=== PATIENT | female | born 1995 | race Caucasian/White ===

== ENCOUNTER 2017-01-03 19:08 | Observation (INO) ==
[2017-01-03] MEDS ORDERED: Terbutaline 1 MG/ML VIAL SQ ONE (19:53)
--- NOTE | 2017-01-03 19:56 | OB/GYN Progress Note ---
Date of Encounter: 01/03/17 Time of Encounter: 19:54 - Assessment and Plan (1) 34 weeks gestation of Current Visit: Yes Status: Acute Pt with uterine irritability. Will give SSQ [place]. Subjective - Subjective Principal diagnosis: C/o cramps and back pain Interval history: 21 yo female presents with c/o 2 day h/o back pain, now with abd tightening q 5 min and ?LOF. + GFM Objective - Vital Signs Vital Signs: Intake and Output 01/03/17 01/03/17 01/03/17 07:59 15:59 23:59 Other: Weight 81.3 kg Patient Weight 01/03/17 23:59 Weight 81.3 kg - Exam FHR: category 1 Auscultation: bilateral: normal Abdomen: Present: gravid Uterus: Present: firm Cervical dilation: cl Cervix effacement: th station: -2 Comments: SSE is neg for pool and nitrazine is neg.
[2017-01-03 19:58] LABS: Bilirubin,Urine Negative (Negative); Blood,Urine Negative (Negative); Clarity,Urine Cloudy (Clear); Color,Urine Yellow (Yellow); Glucose,Urine (UA) Normal (Normal); Ketones,Urine Negative (Negative); Leukocyte Esterase,Urine Negative (Negative); Nitrite,Urine Negative (Negative); Protein,Urine Negative (Neg-Trace); Specific Gravity,Urine 1.008 (1.010-1.025); Urobilinogen,Urine Normal (Normal)
[2017-01-03 20:00] LABS: Bacteria,Urine Few per hpf (None-Few); Hyaline Casts,Urine None Seen per lpf (None-Few); RBC,Urine 0-3 per hpf (0-3); Squamous Epithelial Cell,Urine Many per lpf (None-Few)
[2017-01-03] MEDS ORDERED: Acetaminophen 325 MG TABLET PO ONE (21:23)
== END 2017-01-03 21:45 | disposition home or self-care (01) ==
LOC: 1NENULAB
PROVIDERS: ADMIT Obstetrics & Gynecology; ATTEND Obstetrics & Gynecology

== ENCOUNTER 2017-01-05 10:52 | Observation (INO) ==
[2017-01-05] MEDS ORDERED: Acetaminophen 325 MG TABLET PO ONE (11:34)
[2017-01-05] MEDS ORDERED: Ondansetron ODT 4 MG TAB.RAPDIS SL ONE (11:34)
--- NOTE | 2017-01-05 11:37 | Discharge Summary ---
Date of Encounter: 01/05/17 Time of Encounter: 11:39 - Discharge Diagnosis (1) False labor Priority: Primary Status: Acute Comments: Ms. Simons, a 21yo female, presents from home with concerns for labor contractions. She notes they are began last night at 10pm with frequency of every [address] Capellan (environmental science instructor) who encouraged her to come in. She has nausea. Vaginal bleeding or gush of fluids. No recent intercourse. Mild pelvic and back pains. OB: Dr. 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 External TOCO shows uterine irritability. External FHR monitor shows reactivity. Will provide Zofran ODT and acetaminophen. Patient refuses ambien (given 2 days ago on her last evaluation in L&D). We discussed benadryl which she also refused. Will discharge home. (2) 34 weeks gestation of Priority: Primary Status: Acute Comments: as above - Discharge Medications Home Medications: [id number]/Iron Fumarate/FA/Dss [ 19 Tablet] 1 each PO DAILY 01/03/17 [ History] Allergies/Adverse Reactions: Allergies No Known Allergies Allergy (Verified 01/05/17 11:22) Data Procedures and tests throughout hospitalization: External TOCO External FHR monitor Date of admission: 01/05/17 10:52 Primary care physician: PCP NO Consults: none Discharging clinician: Jabari Case Anticipated date of discharge: 01/05/17 - Patient Status Disposition: Home, Self-Care Condition: Good Functional capacity at discharge: independent ambulation Overall status at discharge: patient is back to baseline - Discharge Instructions Instructions: Early Labor Signs (DC) Follow Up With: Miles Elder MD [Partnered Physician] - Additional Instructions: Follow-up with your primary OB physician as scheduled. 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
--- NOTE | 2017-01-05 13:20 | OB/GYN Progress Note ---
Date of Encounter: 01/05/17 Time of Encounter: 11:30 - Assessment and Plan (1) NST (non-stress test) reactive Current Visit: Yes Status: Acute (2) False labor Current Visit: Yes Status: Acute SVE remains closed. Discharge home with precautions. (3) 34 weeks gestation of Current Visit: No Status: Acute Subjective - Subjective Interval history: 21 year-old presenting at 34 weeks with c/o contractions every 4 minutes that are painful. She was seen on Thursday and was evens but no cervical change was noted. She was discharged home with ambien. No LOF, VB, or other complaints today. Antepartum ROS: movement normal, contractions, no loss of fluid, no vaginal bleeding Objective - Vital Signs Vital Signs: Intake and Output 01/04/17 01/05/17 01/05/17 23:59 07:59 15:59 Other: Weight 80.2 kg Patient Weight 01/05/17 23:59 Weight 80.2 kg - Exam FHR: category 1 FHR comments: reactive NST Auscultation: bilateral: normal Abdomen: Present: soft. Absent: tenderness Uterus: Present: normal. Absent: tenderness Cervical dilation: closed
== END 2017-01-05 11:51 | disposition home or self-care (01) ==
LOC: 1NENULAB
PROVIDERS: ADMIT Obstetrics & Gynecology; ATTEND Obstetrics & Gynecology

== ENCOUNTER 2017-01-13 20:23 | Observation (INO) ==
[2017-01-13 21:45] LABS: Bilirubin,Urine Negative (Negative); Blood,Urine Negative (Negative); Clarity,Urine Clear (Clear); Color,Urine Yellow (Yellow); Glucose,Urine (UA) Normal (Normal); Ketones,Urine Negative (Negative); Leukocyte Esterase,Urine Trace (Negative); Nitrite,Urine Negative (Negative); PH,Urine 6.5 pH Units (5.0-8.0); Protein,Urine Negative (Neg-Trace); Specific Gravity,Urine 1.017 (1.010-1.025); Urobilinogen,Urine Normal (Normal)
[2017-01-13 21:46] LABS: RBC,Urine 0-3 per hpf (0-3)
[2017-01-13 21:49] LABS: Calcium Oxalate Crystals,Urine Present; Hyaline Casts,Urine Few per lpf (None-Few); Squamous Epithelial Cell,Urine Moderate per lpf (None-Few)
[2017-01-13 21:50] LABS: Mucus,Urine Few (Few); Yeast,Urine Few per hpf (None Seen)
[2017-01-13 21:51] LABS: Bacteria,Urine Moderate per hpf (None-Few)
--- NOTE | 2017-01-13 22:00 | Discharge Summary ---
Date of Encounter: 01/13/17 Time of Encounter: 22:00 - Discharge Diagnosis (1) 36 weeks gestation of Priority: Secondary Status: Acute (2) False labor Priority: Primary Status: Acute Comments: Reactive NST Oral Hydration Urinalysis and Reflex C/S Sterile Vaginal Exam GBS collected Discharge home with labor precautions and movement counts (3) NST (non-stress test) reactive Priority: Secondary Status: Acute Comments: Reactive NST 15x15 accels baseline of 120 (4) Vaginal candidiasis Priority: Primary Status: Acute Comments: Terazol 7 Rx submitted electronically to patient's preferred pharmacy. - Discharge Medications Prescriptions: Terconazole [Terazol 7] 45 gm VG HS #1 cream.appl Home Medications: [id number]/Iron Fumarate/FA/Dss [ 19 Tablet] 1 each PO DAILY 01/03/17 [ History] Terconazole [Terazol 7] 45 gm VG HS #1 cream.appl 01/13/17 [Rx] Allergies/Adverse Reactions: Allergies No Known Allergies Allergy (Verified 01/05/17 11:22) Data Procedures and tests throughout hospitalization: Laboratory Tests 01/13/17 20:48 Urine Color Yellow Urine Clarity Clear Urine pH 6.5 Ur Specific [place] 1.017 Urine Protein Negative Urine Glucose (UA) Normal Urine Ketones Negative Urine Blood Negative Urine Nitrite Negative Urine Bilirubin Negative Urine Urobilinogen Normal Ur Leukocyte Esterase Trace H Urine Microscopic RBC 0-3 Urine Microscopic WBC 5-15 H Ur Squamous Epith Cells Moderate H Calcium Oxalate Crystal Present Urine Bacteria Moderate H Hyaline Casts Few Urine Mucus Few Urine Yeast Few H Ur Culture Indicated? YES A Labs on day of discharge: Labs from last 24 hours 01/13/17 20:48 Urine Color Yellow Urine Clarity Clear Urine pH 6.5 Ur Specific [place] 1.017 Urine Protein Negative Urine Glucose (UA) Normal Urine Ketones Negative Urine Blood Negative Urine Nitrite Negative Urine Bilirubin Negative Urine Urobilinogen Normal Ur Leukocyte Esterase Trace H Urine Microscopic RBC 0-3 Urine Microscopic WBC 5-15 H Ur Squamous Epith Cells Moderate H Calcium Oxalate Crystal Present Urine Bacteria Moderate H Hyaline Casts Few Urine Mucus Few Urine Yeast Few H Ur Culture Indicated? 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: Total time spent providing and/or coordinating discharge services: Exam - Constitutional General appearance IM: cooperative, A&O X 3, pleasant, no acute distress - Respiratory Respiratory exam: Present: CTAB - Cardiovascular Cardiovascular exam IM: Present: RRR, +S1, +S2 - GI/Abdominal GI/Abdominal exam IM: normal bowel sounds - Rectal Rectal exam: normal inspection - Additional comments: Gravid uterus - nontender, soft, no contractions palpated - Extremities Exam Extremities exam IM: Present: normal capillary refill, normal inspection, radial pulses palpable and symetrical - Neurological Exam Neurological exam: alert, oriented X3, reflexes normal, no focal deficits - Other Additional findings: Cervical exam: finger tip and -3 station - VTE Reasons for not Prescribing Prophylaxis: Treatment not Indicated - Low risk for VTE
== END 2017-01-13 22:19 | disposition home or self-care (01) ==
LOC: 1NENULAB
PROVIDERS: ADMIT Advanced Practice Midwife; ATTEND Obstetrics & Gynecology

== ENCOUNTER 2017-01-15 20:41 | Observation (INO) ==
[2017-01-15 20:56] VITALS: BP 116/72
[2017-01-15 21:11] LABS: Bilirubin,Urine Negative (Negative); Blood,Urine Negative (Negative); Clarity,Urine Cloudy (Clear); Color,Urine Yellow (Yellow); Glucose,Urine (UA) Normal (Normal); Ketones,Urine Negative (Negative); Leukocyte Esterase,Urine Trace (Negative); Nitrite,Urine Negative (Negative); PH,Urine 6.5 pH Units (5.0-8.0); Protein,Urine Negative (Neg-Trace); Specific Gravity,Urine 1.013 (1.010-1.025); Urobilinogen,Urine Normal (Normal)
[2017-01-15 21:19] LABS: Bacteria,Urine Moderate per hpf (None-Few); Hyaline Casts,Urine None Seen per lpf (None-Few); RBC,Urine 0-3 per hpf (0-3); Squamous Epithelial Cell,Urine Many per lpf (None-Few)
[2017-01-15] MEDS ORDERED: Ringers Solution, Lactated 1,000 ML IVC ONE (21:22)
[2017-01-15] MEDS ORDERED: Ringers Solution, Lactated 1,000 ML ONE ×2 (21:22→22:28)
[2017-01-15 21:28] LABS: Basophils % 0.2 %; Eosinophils % 0.2 %; Hematocrit 34.3 % (35.3-44.9); Hemoglobin 11.6 g/dL (11.5-15.4); Immature Granulocytes % 0.6 % (0-4); Lymphocytes # 2.4 K/mcL (0.6-4.6); Lymphocytes % 19.4 %; Mean Corpuscular HGB Conc 33.8 g/dL (31.6-35.5); Mean Corpuscular Hemoglobin 31.2 pg (28.0-33.3); Mean Corpuscular Volume 92.2 fL (83.0-100.0); Monocytes # 0.8 K/mcL (0.0-1.3); Monocytes % 6.1 %; Platelet Count 129 K/mcL (140-400); Red Blood Count 3.72 M/mcL (3.82-4.97); Red Cell Distribution Width 13.9 % (11.5-14.5); Segmented Neutrophils % 73.5 %
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
[2017-01-15 21:47] LABS: Prothrombin Time 11.2 Seconds (9.4-12.1)
[2017-01-15 21:49] LABS: Activated Partial Thrombo Time 26.1 Seconds (26.0-36.0)
[2017-01-15 22:57] LABS: Kleihauer-Betke-Fet Hgb Qnt 0 mL FMH (0-0)
[2017-01-15] MEDS ORDERED: Acetaminophen 325 MG TABLET PO PRN (22:57)
[2017-01-15] MEDS ORDERED: Ringers Solution, Lactated 1,000 ML IVC SCH (23:00)
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
== END 2017-01-16 09:50 | disposition home or self-care (01) ==
LOC: 1NENULAB
PROVIDERS: ADMIT Obstetrics & Gynecology; ATTEND Obstetrics & Gynecology

== ENCOUNTER 2017-02-10 05:57 | Inpatient (IN) ==
[2017-02-10] MEDS ORDERED: miSOPROStol 25 MCG TABLET PO PRN (06:45)
[2017-02-10] MEDS ORDERED: Metoclopramide 10 MG/2 ML VIAL IVP PRN (06:45)
[2017-02-10] MEDS ORDERED: Naloxone 0.4 MG/ML INJ IVP PRN (06:45)
[2017-02-10] MEDS ORDERED: Famotidine 20 MG/2 ML VIAL IVP PRN (06:45)
--- NOTE | 2017-02-10 07:00 | OB/GYN History & Physical ---
Date of Encounter: 02/10/17 Time of Encounter: 06:57 Assessment and Plan (1) 39 weeks gestation of Current visit: Yes Status: Acute GBS - induction of labor oral cytotec patient may have IV pain medication upon request consult anesthesia for epidural vaginal delivery anticipated plan of care per consult with Dr. Elder (2) LGA (large for gestational age) fetus Current visit: Yes Status: Acute History of Present Illness Chief complaint: scheduled induction of labor HPI: Ms. Simons is a 21 year old female at 39.1 here today for a scheduled induction of labor due to size greater than date/LGA. She has been experiencing intermittent contractions for the past few weeks and has vaginal discharge without bleeding. States positive movement. Blood type A-. Labs: GBS -, HIV -, Hep B -, rubella immune, varicella immune. Not a cystic fibrosis carrier. Past Med Surg Social Fam HX - Past Medical History Medical history: no medical history Psychiatric history: no psych history - Past Surgical History Surgical History: other - Social History Smoking Status: Never smoker Smokeless Tobacco Status: No Alcohol use: none Drug use: none - Family History Mother Age: 47 Family Member Ethnicity: Non- Living Status: Still Living Hx Family Cardiac Disorders: No Hx Family Respiratory Disorders: No Hx Family Cancer: No Hx Family GI Disorders: No Hx Family Genitourinary Disorders: No Hx Family Endocrine Disorder: No Hx Family Musculoskeletal Disorders: No Hx Family Neuromuscular Disorders: No Hx Family Neurologic Disorders: No Hx Family HEENT Disorders: No Hx Family Autoimmune Disorders: No Hx Family Reproductive Disorders: No Hx Family Psychosocial Disorders: No Hx Family Medical Disorders: No Obstetrical History - Pregnancies : 1 Medications and Allergies [id number]/Iron Fumarate/FA/Dss [ 19 Tablet] 1 each PO DAILY 01/03/17 [ History] Allergies No Known Allergies Allergy (Verified 01/15/17 20:43) Review of System OB - Constitutional Constitutional ROS IM: no fever(s) - Gastrointestinal Gastrointestinal: no abdominal pain - Genitourinary Genitourinary: no abnormal vaginal bleeding Exam - Vital Signs Vital signs: Initial Vital Signs Temp Pulse Resp BP 97.2 F L 83 16 108/58 02/10/17 06:32 02/10/17 06:32 02/10/17 06:32 02/10/17 06:32 - Constitutional Constitutional: well developed, well nourished, no acute distress - HEENT HEENT: Normocephaly, Mucus Membranes Moist - Neck Neck exam: supple - Lungs Respiratory exam: CTAB - Cardiovascular Cardiovascular exam: RRR, +S1, +S2 - Extremities Deep Tendon Reflex Grade: 1+ Diminished - Cervix Dilation: 1 Effacement: 25 (thick) Station: -2 - Comments Comments: contractions every 2-4 minutes, 45-120 seconds FHT 130s with moderate variability 15x15 accels and no decels Results All other labs normal. - VTE Reasons for not Prescribing Prophylaxis: Treatment not Indicated - Low risk for VTE
[2017-02-10 09:01] LABS: Basophils % 0.3 %; Eosinophils % 0.3 %; Hemoglobin 11.9 g/dL (11.5-15.4); Immature Granulocytes % 0.7 % (0-4); Immature Platelets 11.8 % (1.1-6.1); Lymphocytes # 2.5 K/mcL (0.6-4.6); Lymphocytes % 27.9 %; Mean Corpuscular HGB Conc 33.1 g/dL (31.6-35.5); Mean Corpuscular Hemoglobin 30.1 pg (28.0-33.3); Mean Corpuscular Volume 90.9 fL (83.0-100.0); Mean Platelet Volume 11.3 fL (9.4-12.4); Monocytes # 0.4 K/mcL (0.0-1.3); Monocytes % 4.9 %; Neutrophils # 5.9 K/mcL (1.6-8.9); Red Blood Count 3.96 M/mcL (3.82-4.97); Red Cell Distribution Width 14.5 % (11.5-14.5); Segmented Neutrophils % 65.9 %
[2017-02-10 09:35] LABS: Platelet Count 142 K/mcL (140-400)
[2017-02-10] MEDS ORDERED: miSOPROStol 25 MCG TABLET PO ONE (12:32)
--- NOTE | 2017-02-10 13:52 | OB Labor Progress Note ---
Date of Encounter: 02/10/17 Time of Encounter: 13:51 Labor Progress Note - Subjective Subjective: Pt resting comfortable in bed - Cervix Cervix: 3/60/-2 - Heart Tones Heart Tones: 120/moderate/+accels/-decels Cat I - [place]: 2-3 - Interventions Interventions: AROM for moderate amount clear fluid - Plan Plan: Continue current POC. Epidural and nubain if desired Anticipate
[2017-02-10] MEDS: Ringers Solution, Lactated 1,000 ML IVC SCH (19:26)
[2017-02-10] MEDS ORDERED: Bupivacaine-MPF 0.25% 10 ML VIAL ONE (19:41)
[2017-02-10] MEDS ORDERED: *HR* FentaNYL (PF) 100 MCG/2 ML VIAL ONE (19:41)
[2017-02-10] MEDS ORDERED: Epidural Premix (fent/bupiv) 110 ML EP ONE (19:41)
--- NOTE | 2017-02-10 20:28 | Anesthesia Evaluation PreOp ---
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 Any Significant HX Other Medical History: Denies Any Significant HX, GERD Anesthesia History: No Prior Anesthetic Complications (left arm surgery, T&A) : Yes Test: Positive Alcohol Use: none Drug use: none Medications and Allergies [id number]/Iron Fumarate/FA/Dss [ 19 Tablet] 1 each PO DAILY 01/03/17 [ History] Allergies No Known Allergies Allergy (Verified 01/15/17 20:43) - Meds/Allergy Pre-op Review Medications Reviewed: Yes Allergies Reviewed: Yes Beta Blockers on Current Med List: No Anesthesia Results - Labs 02/10/17 08:54 Anesthesia Exam 3 Vital Signs Time BP 113/56 Pulse 72 Resp 16 O2 Sat Height: 65 Weight: 186 pounds NPO (# of Hours): clears Pain Scale: 10 Pain Scale Used: Numeric (1 - 10) - HEENT Pupil (Motor): Pupils equal Mallampati: III Teeth: Normal Oral Opening: Greater than 3 - COMMUNITY LIVING SPECIALIST LOC: Oriented COMMUNITY LIVING SPECIALIST Motor: Normal RUE, Normal LUE, Normal RLE, Normal LLE, Normal Face COMMUNITY LIVING SPECIALIST Sensory: Normal: RUE, LUE, RLE, LLE, Face - Cardiac Rhythm: Regular Murmur: None JVD: No Carotid Bruit: No - Pulmonary Breath Sounds: bilateral Clear Respiratory Effort: Symmetrical Anesthesia Assess/Plan ASA Score: 2 Modified Franco Scale for Level of Consciousness: Cooperative, oriented, and tranquil Anesthetic Plan: Regional Monitoring Plan: Standard Monitors Recovery Plan: Other
--- NOTE | 2017-02-10 20:33 | Anesthesia Procedures ---
Date of Encounter: 02/10/17 Time of Encounter: 19:50 Procedures: Anesthesia - Epidural/Spinal Patient ID/Chart reviewed: Yes Patient examined: Yes OB Eval: Gestational age: 39 weeks 1 day OB Eval: : 1 OB Eval: Hx Para: 0 OB Eval: Dilated at (cm): 5 OB Eval: Contractions: Non-stressed pattern Consent Obtained: Yes Supplemental Oxygen: None/Room Air Site Prep: Aseptic Technique, Sterile prep and drape, Povidone-Iodine 1% Patient position: upright Local Anesthetic: Lidocaine 1% Amount of Local Anesthetic used: 3 Touhy Needle Gauge: 18 Touhy Needle Depth (cm): 5 Catheter Depth at Skin (cm): 12 Test Dose (1.5% Lido + Epi): Volume given (mls): 3 Test Dose Result: Negative Loading Dose: 0.25% Marcaine (mls): 5 Loading Dose: Fentanyl (mcg): 100 Loading Dose: Other: 3 ml saline Loading Dose Administered: Thru Catheter Infusion Med: 0.125% Bupivacaine w/ 2 mcg/ml Fentanyl Infusion Rate (mls/hr): [address]: Tegaderm, Tape Interspace Used: L3-L4 Loss of Resistance (ELVIS): Yes (air) Blood: No CSF: No Paresthesia: No Procedure: 3 Vital Signs Time 1950 start test 2008 finish BP 110/69 127/76 133/71 114/64 Pulse 71 76 63 64 Resp 16 16 16 16 O2 Sat 100 100 100 100 heart tones 130 throughout patient tolerated well.
[2017-02-10] MEDS ORDERED: Oxytocin 20 units/ LR 1000 mL 20 UNIT/1,000 ML BAG IVC SCH (22:15)
[2017-02-11] MEDS: Ringers Solution, Lactated 1,000 ML IVC SCH (01:22)
--- NOTE | 2017-02-11 02:37 | OB Labor Progress Note ---
Date of Encounter: 02/11/17 Time of Encounter: 02:36 Labor Progress Note - Subjective Subjective: Feeling more pressure - Heart Tones Heart Tones: RNST - Marienthal Marienthal: annabel's q2-3 min - Plan Plan: Expect
[2017-02-11] MEDS ORDERED: Epidural Premix (fent/bupiv) 110 ML EP ONE (03:49)
[2017-02-11] MEDS ORDERED: Ibuprofen 600 MG TABLET PO PRN (12:05)
[2017-02-11] MEDS ORDERED: Measles/Mumps/Rubella Vacc 0.5 ML VIAL SQ PRN (12:05)
[2017-02-11] MEDS ORDERED: Rho Immune Globulin 1,500 UNIT SYRINGE IM PRN (12:05)
[2017-02-11] MEDS ORDERED: Acetaminophen 325 MG TABLET PO PRN (12:05)
[2017-02-11] MEDS ORDERED: Oxytocin 20 units/ LR 1000 mL 20 UNIT/1,000 ML BAG IVC SCH (12:05)
--- NOTE | 2017-02-11 15:41 | OB/GYN Procedure Note ---
Delivery - Delivery Date: 02/11/17 Provider: Miles Elder Intrapartum events: none Delivery induction: AROM, oxytocin, rodrigues, misoprostol Delivery monitor: external FHT, external uterine, internal FHT Anesthesia: epidural Estimated Blood Loss: 300 - Infant (s) Infant A Delivery Date: 02/11/17 Infant Delivery Time: 09:11 Presentation: vertex Position: RAVIN Route of delivery: Gender: Male Viability: Viable Weight Gram: 4.09 kg at 5 mins: 3 at 10 mins: 6 Shoulder Dystocia: not encountered Cord: 3 umbilical vessels - Repair Laceration Description: None - Complications Delivery complications: none - Disposition Mom disposition: stable in LDR disposition: taken to nursery - Comments Comments: Patient status post normal spontaneous vaginal delivery. Patient progressed to complete and pushed very well with delivery of liveborn male weighing 9 pounds. Delivery was uneventful and prior to delivery heart tones showed excellent variability with no worrisome decelerations. At time of delivery patient was somewhat exhausted and had to be encouraged to continue expulsive efforts however there was no dystocia with easy delivery the anterior shoulder was a loose nuchal cord 1. Time of delivery was noted to be blotchy and quite flaccid therefore was taken to warmer after clamping and cutting cord. Resuscitative efforts were begun with bag mask ventilation intact on stimulation. heart tones were good throughout infant did respond well to resuscitative efforts. Placenta was delivered spontaneously uterus was massaged until firm and Pitocin IV bolus was given inspection of perineum revealed no vaginal or perineal lacerations. All sponge and instruments counts are correct patient was taken recovery room good condition.
[2017-02-12] MEDS ORDERED: Lidocaine 1% 20 ML MDV ONE (03:41)
[2017-02-12 04:43] VITALS: BP 96/61
[2017-02-12 05:19] LABS: Hemoglobin 10.8 g/dL (11.5-15.4)
[2017-02-12 05:21] LABS: Basophils % 0.2 %; Eosinophils % 0.2 %; Hematocrit 32.4 % (35.3-44.9); Immature Granulocytes % 0.7 % (0-4); Immature Platelets 18.8 % (1.1-6.1); Lymphocytes # 2.6 K/mcL (0.6-4.6); Lymphocytes % 17.3 %; Mean Corpuscular HGB Conc 33.3 g/dL (31.6-35.5); Mean Corpuscular Hemoglobin 30.2 pg (28.0-33.3); Mean Corpuscular Volume 90.5 fL (83.0-100.0); Mean Platelet Volume 11.9 fL (9.4-12.4); Monocytes # 0.8 K/mcL (0.0-1.3); Monocytes % 5.6 %; Neutrophils # 11.4 K/mcL (1.6-8.9); Platelet Count 111 K/mcL (140-400); Red Blood Count 3.58 M/mcL (3.82-4.97); Red Cell Distribution Width 14.6 % (11.5-14.5)
[2017-02-12 05:59] LABS: Platelet Clumps Few (Not Present)
[2017-02-12] MEDS ORDERED: Prenatal Vit/FA 1 EACH TABLET PO SCH (09:00)
--- NOTE | 2017-02-12 09:11 | Discharge Summary ---
Date of Encounter: 02/12/17 Time of Encounter: 09:07 - Discharge Diagnosis (1) Vaginal delivery Priority: Primary Status: Acute Comments: Pt meeting milestones. (2) Mother currently breast-feeding Priority: Secondary Status: Acute Comments: Pt to see RN prior to discharge. - Discharge Medications Prescriptions: Ibuprofen [Motrin] 600 mg PO Q6HR PRN #60 tablet PRN Reason: Cramping Breast Pump [BREAST PUMP] 1 each .ROUTE AD #1 each Docusate [Colace] 100 mg PO BID #60 capsule Home Medications: [id number]/Iron Fumarate/FA/Dss [ 19 Tablet] 1 each PO DAILY 01/03/17 [ History] Breast Pump [BREAST PUMP] 1 each .ROUTE AD #1 each 02/12/17 [Rx] Docusate [Colace] 100 mg PO BID #60 capsule 02/12/17 [Rx] Ibuprofen [Motrin] 600 mg PO Q6HR PRN #60 tablet 02/12/17 [Rx] Allergies/Adverse Reactions: Allergies No Known Allergies Allergy (Verified 01/15/17 20:43) Data Procedures and tests throughout hospitalization: Laboratory Tests 02/10/17 02/10/17 02/11/17 06:56 08:54 09:55 WBC 9.0 RBC 3.96 Hgb 11.9 Hct 36.0 MCV 90.9 MCH 30.1 MCHC 33.1 RDW 14.5 Plt Count 142 MPV 11.3 Immature Gran % 0.7 Seg Neutrophils % 65.9 Lymphocytes % 27.9 Monocytes % 4.9 Eosinophils % 0.3 Basophils % 0.3 Neutrophils # 5.9 Lymphocytes # 2.5 Monocytes # 0.4 Eosinophils # 0.0 Basophils # 0.0 Clumped Platelets Immature Plt Fraction 11.8 H Specimen Rejected Clotted Screen NEGATIVE Baby's Blood Type B RH POSITIVE Mother's Blood Type A RH NEGATIVE Rhogam Indicated YES Rhogam Req for Mother 1 02/12/17 03:41 WBC 15.0 H D RBC 3.58 L Hgb 10.8 L Hct 32.4 L MCV 90.5 MCH 30.2 MCHC 33.3 RDW 14.6 H Plt Count 111 L MPV 11.9 Immature Gran % 0.7 Seg Neutrophils % 76.0 Lymphocytes % 17.3 Monocytes % 5.6 Eosinophils % 0.2 Basophils % 0.2 Neutrophils # 11.4 H Lymphocytes # 2.6 Monocytes # 0.8 Eosinophils # 0.0 Basophils # 0.0 Clumped Platelets Few A Immature Plt Fraction 18.8 H Specimen Rejected Screen Baby's Blood Type Mother's Blood Type Rhogam Indicated Rhogam Req for Mother Labs on day of discharge: Labs from last 24 hours 02/12/17 02/11/17 03:41 09:55 WBC 15.0 H D RBC 3.58 L Hgb 10.8 L Hct 32.4 L MCV 90.5 MCH 30.2 MCHC 33.3 RDW 14.6 H Plt Count 111 L MPV 11.9 Immature Gran % 0.7 Seg Neutrophils % 76.0 Lymphocytes % 17.3 Monocytes % 5.6 Eosinophils % 0.2 Basophils % 0.2 Neutrophils # 11.4 H Lymphocytes # 2.6 Monocytes # 0.8 Eosinophils # 0.0 Basophils # 0.0 Clumped Platelets Few A Immature Plt Fraction 18.8 H Screen NEGATIVE Baby's Blood Type B RH POSITIVE Mother's Blood Type A RH NEGATIVE Rhogam Indicated YES Rhogam Req for Mother 1 Date of admission: 02/10/17 05:57 Primary care physician: PCP NO Consults: 02/11/17 12:05 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 [CONS] Routine Comment: Vaginal delivery, consult needed Discharging clinician: Moriah Gill Anticipated date of discharge: 02/12/17 - Patient Status Disposition: Home, Self-Care Condition: Good Functional capacity at discharge: independent ambulation Overall status at discharge: patient is progressing back to baseline - Discharge Instructions Follow Up With: NO,PCP [Primary Care Provider] - Miles Elder MD [Partnered Physician] - - Diet and Activity Activity: increase activity as tolerated Diet: regular diet Hospital Course Reason for admission: induction of labor Delivery: Episiotomy: none Laceration: none Other procedures: none complications: none Discharge diagnosis: IUP at term delivered [place] baby: male Hospital course: - Delivery Date: 02/11/17 Provider: Miles Elder Intrapartum events: none Delivery induction: AROM, oxytocin, rodrigues, misoprostol Delivery monitor: external FHT, external uterine, internal FHT Anesthesia: epidural Estimated Blood Loss: 300 - Infant (s) A Infant Delivery Date: 02/11/17 Delivery Time: 09:11 Presentation: vertex Position: RAVIN Route of delivery: Gender: Male Viability: Viable Weight Gram: 4.09 kg at 5 mins: 3 at 10 mins: 6 Shoulder Dystocia: not encountered Cord: 3 umbilical vessels - Repair Laceration Description: None - Complications Delivery complications: none - Disposition Mom disposition: home PPD#1 disposition: home with mother, Time Attestation: Total time spent providing and/or coordinating discharge services: Time Spent: Less than 30 minutes Exam - Constitutional Vitals: Temp Pulse Resp BP Pulse Ox 98.4 F 68 16 96/61 96 02/12/17 04:22 02/12/17 04:22 02/12/17 04:22 02/12/17 04:22 02/12/17 04:22 General appearance IM: A&O X 3, pleasant, no acute distress - Respiratory Respiratory exam: Present: CTAB - Cardiovascular Cardiovascular exam IM: Present: RRR, +S1, +S2 - GI/Abdominal GI/Abdominal exam IM: soft, no peritoneal signs - Rectal Rectal exam: deferred - External exam: normal external exam Uterine Tone: Firm Uterus Position: At Umbilicus - Extremities Exam Extremities exam IM: Present: normal inspection - Neurological Exam Neurological exam: normal gait, oriented X3 - Psychiatric Additional comments: good mood
== END 2017-02-12 12:47 | disposition home or self-care (01) | DRG 775 ==
LOC: 1NENULAB 05:57 → 1NENUOBS 02-11 12:02
PROVIDERS: ADMIT Obstetrics & Gynecology; ATTEND Obstetrics & Gynecology

== ENCOUNTER → 2019-05-02 12:58 | Observation (INO) ==
[2019-05-02 10:58] LABS: Amphetamine Screen,Urine Negative ng/mL (Cutoff=1000); Barbiturate Screen,Urine Negative ng/mL (Cutoff=200); Benzodiazepines Screen,Urine Negative ng/mL (Cutoff=200); Cannabinoid Screen,Urine Negative ng/mL (Cutoff = 50); Cocaine Screen,Urine Negative ng/mL (Cutoff= 300); Opiate Screen,Urine Negative ng/mL (Cutoff=300); Phencyclidine Screen,Urine Negative ng/mL (Cutoff=25)
[2019-05-02 11:14] LABS: Bilirubin,Urine Negative (Negative); Blood,Urine Negative (Negative); Clarity,Urine Cloudy (Clear); Color,Urine Dark Yellow (Yellow); Glucose,Urine (UA) Normal (Normal); Hyaline Casts,Urine None Seen per lpf (None-Few); Ketones,Urine Negative (Negative); Leukocyte Esterase,Urine Negative (Negative); Nitrite,Urine Negative (Negative); Protein,Urine Trace mg/dL (Neg-Trace); RBC,Urine 0-3 per hpf (0-3); Specific Gravity,Urine 1.029 (1.010-1.025); Squamous Epithelial Cell,Urine Many per lpf (None-Few); Urobilinogen,Urine Normal (Normal)
[2019-05-02 11:36] LABS: Bacteria,Urine Moderate per hpf (None-Few)
--- NOTE | 2019-05-02 12:10 | Discharge Summary ---
Date of Encounter: 05/02/19 Time of Encounter: 12:09 - Discharge Diagnosis (1) 30 weeks gestation of Priority: Primary Status: Acute Comments: Admit to observation for complaints of nausea in (2) related nausea, antepartum Priority: Secondary Status: Acute Comments: UA WNL aside from specific gravity of 1.029 SL Zofran given prior to discharge and RX sent to the pharmacy Advance diet as tolerated and return to OB provider for routine care. (3) NST (non-stress test) reactive Priority: Secondary Status: Acute Comments: 130 bpm, moderate variability, +15x15 accels, no decels. - Discharge Medications Prescriptions: New Ondansetron ODT [Zofran ODT] 4 mg SL Q6HR 7 Days #28 tab.rapdis Home Medications: Ondansetron ODT [Zofran ODT] 4 mg SL Q6HR 7 Days #28 tab.rapdis 05/02/19 [Rx] Allergies/Adverse Reactions: Allergy/AdvReac Type Severity Reaction Status Date / Time No Known Allergies Allergy Verified 05/02/19 10:03 Data Procedures and tests throughout hospitalization: Laboratory Tests 05/02/19 05/02/19 09:40 09:46 Urine Color Dark Yellow Urine Clarity Cloudy A Urine pH 6.0 Ur Specific [place] 1.029 H Urine Protein Trace Urine Glucose (UA) Normal Urine Ketones Negative Urine Blood Negative Urine Nitrite Negative Urine Bilirubin Negative Urine Urobilinogen Normal Ur Leukocyte Esterase Negative Urine Microscopic RBC 0-3 Urine Microscopic WBC 3-5 H Ur Squamous Epith Cells Many H Urine Bacteria Moderate H Hyaline Casts None Seen Ur Culture Indicated? YES A Urine Opiates Screen Negative Ur Buprenorphine Scrn Negative Ur Barbiturates Screen Negative Ur Phencyclidine Scrn Negative Ur Amphetamines Screen Negative U Benzodiazepines Scrn Negative Urine Cocaine Screen Negative U Marijuana (THC) Screen Negative Ur Drug Screen Interp See Below Labs on day of discharge: Labs from last 24 hours 05/02/19 05/02/19 09:46 09:40 Urine Color Dark Yellow Urine Clarity Cloudy A Urine pH 6.0 Ur Specific [place] 1.029 H Urine Protein Trace Urine Glucose (UA) Normal Urine Ketones Negative Urine Blood Negative Urine Nitrite Negative Urine Bilirubin Negative Urine Urobilinogen Normal Ur Leukocyte Esterase Negative Urine Microscopic RBC 0-3 Urine Microscopic WBC 3-5 H Ur Squamous Epith Cells Many H Urine Bacteria Moderate H Hyaline Casts None Seen Ur Culture Indicated? YES A Urine Opiates Screen Negative Ur Buprenorphine Scrn Negative Ur Barbiturates Screen Negative Ur Phencyclidine Scrn Negative Ur Amphetamines Screen Negative U Benzodiazepines Scrn Negative Urine Cocaine Screen Negative U Marijuana (THC) Screen Negative Ur Drug Screen Interp See Below Date of admission: 05/02/19 09:35 Primary care physician: PCP NONE Discharging clinician: Shilpa Alvarez Anticipated date of discharge: 05/02/19 - Patient Status Disposition: Home, Self-Care Condition: Good Functional capacity at discharge: independent ambulation Overall status at discharge: patient is progressing back to baseline - Discharge Instructions Follow Up With: NONE,PCP [Primary Care Provider] - - Diet and Activity Activity: resume usual activities as tolerated Diet: other (Advance diet as tolerated) 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 She denies any vomiting and being around anyone who was ill with the same symptoms. She reports positive movement and denies vaginal bleeding and fluid leakage. Her UA did show signs of dehydration but was otherwise unremarkable. Patient was PO hydrated and was able to tolerate fluid. She was given one dose of SL Zofran prior to discharge and an RX was sent for 7 days of SL Zofran. She is to return to her OB provider as scheduled for routine care. Time Attestation: Total time spent providing and/or coordinating discharge services: Time Spent: Less than 30 minutes Exam - Constitutional General appearance IM: A&O X 3, pleasant, no acute distress, answers questions appropriately - Respiratory Respiratory exam: Present: CTAB. Absent: respiratory distress - Cardiovascular Cardiovascular exam IM: Present: RRR, +S1, +S2. Absent: irregular rhythm - GI/Abdominal GI/Abdominal exam IM: normal bowel sounds, soft - Rectal Rectal exam: deferred, normal inspection - External exam: normal external exam - Extremities Exam Extremities exam IM: Present: full ROM, normal capillary refill, normal inspection. Absent: calf tenderness - Neurological Exam Neurological exam: alert, normal gait, oriented X3 - VTE Reasons for not Prescribing Prophylaxis: Treatment not Indicated - Low risk for VTE
[~2019-05-02 12:58] MED LIST: Ondansetron ODT 4 MG TAB.RAPDIS SL ONE
== END | disposition home or self-care (01) ==
LOC: 1NENULAB
PROVIDERS: ADMIT Registered Nurse; ATTEND Registered Nurse

== ENCOUNTER → 2019-06-11 21:30 | Observation (INO) ==
[2019-06-11 19:02] LABS: Amphetamine Screen,Urine Negative ng/mL (Cutoff=1000); Barbiturate Screen,Urine Negative ng/mL (Cutoff=200); Benzodiazepines Screen,Urine Negative ng/mL (Cutoff=200); Cannabinoid Screen,Urine Negative ng/mL (Cutoff = 50); Cocaine Screen,Urine Negative ng/mL (Cutoff= 300); Opiate Screen,Urine Negative ng/mL (Cutoff=300); Phencyclidine Screen,Urine Negative ng/mL (Cutoff=25)
[2019-06-11 19:11] LABS: Bilirubin,Urine Negative (Negative); Blood,Urine Negative (Negative); Clarity,Urine Cloudy (Clear); Color,Urine Yellow (Yellow); Glucose,Urine (UA) Normal (Normal); Ketones,Urine 15 mg/dL (Negative); Leukocyte Esterase,Urine Trace (Negative); Nitrite,Urine Negative (Negative); PH,Urine 7.5 pH Units (5.0-8.0); Protein,Urine Negative (Neg-Trace); Specific Gravity,Urine 1.011 (1.010-1.025); Urobilinogen,Urine Normal (Normal)
[2019-06-11 19:16] LABS: Bacteria,Urine Few per hpf (None-Few); Hyaline Casts,Urine None Seen per lpf (None-Few); RBC,Urine 0-3 per hpf (0-3); Squamous Epithelial Cell,Urine Many per lpf (None-Few)
[~2019-06-11 21:30] MED LIST changes: -Ondansetron ODT 4 MG TAB.RAPDIS SL ONE; +Ringers Solution, Lactated 1,000 ML IVC ONE
--- NOTE | 2019-06-11 21:43 | Discharge Summary ---
Date of Encounter: 06/11/19 Time of Encounter: 21:42 - Discharge Diagnosis (1) Dehydration during Priority: Secondary Status: Acute Comments: 1 L LR bolus given Patient reports she feels slightly better, antibiotics will be prescribed for likely new UTI (2) 36 weeks gestation of Priority: Primary Status: Acute Comments: Follow-up with Dr. Elder on Thursday as scheduled labor parameters discussed Discharge home - Discharge Medications Prescriptions: New Nitrofurantoin Monohyd/M-Cryst [Macrobid 100 mg Capsule] 100 mg PO BID #14 capsule Continued Ondansetron ODT [Zofran ODT] 4 mg SL Q6HR 7 Days #28 tab.rapdis Caplet 1 tab PO DAILY Home Medications: Ondansetron ODT [Zofran ODT] 4 mg SL Q6HR 7 Days #28 tab.rapdis 05/02/19 [Rx] Nitrofurantoin Monohyd/M-Cryst [Macrobid 100 mg Capsule] 100 mg PO BID #14 capsule 06/11/19 [Rx] Caplet 1 tab PO DAILY 06/11/19 [History] Allergies/Adverse Reactions: Allergy/AdvReac Type Severity Reaction Status Date / Time No Known Allergies Allergy Verified 05/02/19 10:03 Data Procedures and tests throughout hospitalization: Laboratory Tests 06/11/19 06/11/19 18:48 18:48 Urine Color Yellow Urine Clarity Cloudy A Urine pH 7.5 Ur Specific [place] 1.011 Urine Protein Negative Urine Glucose (UA) Normal Urine Ketones 15 H Urine Blood Negative Urine Nitrite Negative Urine Bilirubin Negative Urine Urobilinogen Normal Ur Leukocyte Esterase Trace H Urine Microscopic RBC 0-3 Urine Microscopic WBC 3-5 H Ur Squamous Epith Cells Many H Urine Bacteria Few Hyaline Casts None Seen Ur Culture Indicated? YES A Urine Opiates Screen Negative Ur Buprenorphine Scrn Negative Ur Barbiturates Screen Negative Ur Phencyclidine Scrn Negative Ur Amphetamines Screen Negative U Benzodiazepines Scrn Negative Urine Cocaine Screen Negative U Marijuana (THC) Screen Negative Ur Drug Screen Interp See Below Labs on day of discharge: Labs from last 24 hours 06/11/19 06/11/19 18:48 18:48 Urine Color Yellow Urine Clarity Cloudy A Urine pH 7.5 Ur Specific [place] 1.011 Urine Protein Negative Urine Glucose (UA) Normal Urine Ketones 15 H Urine Blood Negative Urine Nitrite Negative Urine Bilirubin Negative Urine Urobilinogen Normal Ur Leukocyte Esterase Trace H Urine Microscopic RBC 0-3 Urine Microscopic WBC 3-5 H Ur Squamous Epith Cells Many H Urine Bacteria Few Hyaline Casts None Seen Ur Culture Indicated? YES A Urine Opiates Screen Negative Ur Buprenorphine Scrn Negative Ur Barbiturates Screen Negative Ur Phencyclidine Scrn Negative Ur Amphetamines Screen Negative U Benzodiazepines Scrn Negative Urine Cocaine Screen Negative U Marijuana (THC) Screen Negative Ur Drug Screen Interp See Below Preliminary micro results at discharge 06/11/19 18:48 Urine Culture - Preliminary Urine,Clean Catch Culture is incubating. Date of admission: 06/11/19 17:55 Discharging clinician: Beatrice Yepez Anticipated date of discharge: 06/11/19 - Patient Status Disposition: Home, Self-Care Condition: Good Functional capacity at discharge: independent ambulation Overall status at discharge: patient is progressing back to baseline - Discharge Instructions Follow Up With: Miles Elder MD [Partnered Physician] - Additional Instructions: LABOR AND DELIVERY DISCHARGE INSTRUCTIONS Signs and Symptoms to be Reported to your Doctor Immediately: * Sudden gush, continuous or intermittent lead of fluid from vagina (note the time of gush and color of fluid) * Onset of bright red vaginal bleeding with or without pain (if you had a vaginal exam during this visit you may notice some dark red spotting. This is normal.) * Lower abdominal cramping or backache that is premenstrual-like feeling. * More than 6 contractions in one hour. * Burning during urination, having to urinate more frequently or pain in your mid-back. * A change in the baby's activity. This could be an increase or decrease in activity. * Severe headache which does not go away with tylenol. * Sudden swelling in the face, hands, arms and/or legs. * Upper abdominal pain - sometimes associated with heartburn or nausea and is not relieved by Maalox, Mylanta or Tums. * Dizziness or blurred vision or visual disturbances (seeing stars/lights). * Kick Counts One hour after a meal, lay down on one side in a quiet place. Count the number of true the baby moves during an hour. If less than 6 movements, notify your physician. Diet: *Force fluids - 8-10 tall glasses of fluid per day. May include popsicles and jello. 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 Simons presented with complaint of intermittent lower uterine cramping as well as urinary urgency and frequency. Urinalysis was likely positive for UTI. It also should dehydration. She was given 1 L LR bolus and prescribed Macrobid. She was discharged home in stable condition with follow-up in 2 days. Time Attestation: Total time spent providing and/or coordinating discharge services: Time Spent: Less than 30 minutes Exam - Constitutional General appearance IM: A&O X 3, pleasant, answers questions appropriately - Respiratory Respiratory exam: Present: CTAB - Cardiovascular Cardiovascular exam IM: Present: RRR, +S1, +S2 - GI/Abdominal GI/Abdominal exam IM: normal bowel sounds, no peritoneal signs - Rectal Rectal exam: deferred - Uterine Tone: Firm - Extremities Exam Extremities exam IM: Present: full ROM, normal capillary refill, normal inspection, radial pulses palpable and symmetrical - Neurological Exam Neurological exam: alert, CN II-XII intact, normal gait, oriented X3, reflexes normal, no focal deficits, strengths equal and symetr throughout - VTE Reasons for not Prescribing Prophylaxis: Treatment not Indicated - Low risk for VTE
== END | disposition home or self-care (01) ==
LOC: 1NENULAB
PROVIDERS: ADMIT Advanced Practice Midwife; ATTEND Advanced Practice Midwife

== ENCOUNTER 2019-06-28 10:00 | Inpatient (IN) ==
[2019-06-28] MEDS ORDERED: Ringers Solution, Lactated 1,000 ML ONE (10:39)
[2019-06-28] MEDS ORDERED: Famotidine 20 MG/2 ML VIAL IVP PRN (11:16)
[2019-06-28] MEDS ORDERED: Naloxone 0.4 MG/ML INJ IVP PRN (11:16)
[2019-06-28] MEDS ORDERED: Metoclopramide 10 MG/2 ML VIAL IVP PRN (11:16)
--- NOTE | 2019-06-28 11:17 | Anesthesia Evaluation PreOp ---
Date of Encounter: 06/28/19 Time of Encounter: 11:15 - Past History Planned Operation: justa Cardiac History: Denies any Significant Hx Pulmonary History: Denies Any Significant HX COTTAGE PARENT History: Denies Any Significant HX Other Medical History: Denies Any Significant HX, Hepatic Anesthesia History: No Prior Anesthetic Complications, Past Anesthesia (left arm) : Yes (, 39 weeks) Alcohol Use: none Drug use: none Medications and Allergies Caplet 1 tab PO DAILY 06/11/19 [History] Allergy/AdvReac Type Severity Reaction Status Date / Time No Known Allergies Allergy Verified 06/28/19 10:30 - Meds/Allergy Pre-op Review Medications Reviewed: Yes Allergies Reviewed: Yes Beta Blockers on Current Med List: No Anesthesia Exam O2 Sat Height 1.65 m Weight 83.8 kg Height: 65 Weight: 184 - HEENT Pupil (Motor): Pupils equal Mallampati: II Teeth: Normal Oral Opening: Greater than 3 - COTTAGE PARENT LOC: Oriented COTTAGE PARENT Motor: Normal RUE, Normal LUE, Normal RLE, Normal LLE, Normal Face COTTAGE PARENT Sensory: Normal: RUE, LUE, RLE, LLE, Face - Cardiac Rhythm: Regular Murmur: None JVD: No Carotid Bruit: No - Pulmonary Respiratory Effort: Symmetrical Anesthesia Assess/Plan ASA Score: 2 Level of consciousness: Cooperative Anesthetic Plan: Epidural Monitoring Plan: Standard Monitors
[2019-06-28] MEDS ORDERED: EPHEDrine 50 MG/ML VIAL IVP PRN (11:18)
[2019-06-28] MEDS ORDERED: Epidural Premix (fent/bupiv) 110 ML EP SCH (11:30)
[2019-06-28] MEDS ORDERED: Ringers Solution, Lactated 1,000 ML IVC SCH (11:30)
[2019-06-28 11:40] LABS: Basophils % 0.3 %; Eosinophils % 0.3 %; Mean Corpuscular Volume 96.4 fL (83.0-100.0)
[2019-06-28 11:42] LABS: Hematocrit 40.4 % (35.3-44.9); Hemoglobin 13.8 g/dL (11.5-15.4); Immature Granulocytes % 1.1 % (0-4); Immature Platelets 16.3 % (1.1-6.1); Lymphocytes # 2.1 K/mcL (0.6-4.6); Lymphocytes % 20.2 %; Mean Corpuscular HGB Conc 34.2 g/dL (31.6-35.5); Mean Corpuscular Hemoglobin 32.9 pg (28.0-33.3); Mean Platelet Volume 11.8 fL (9.4-12.4); Monocytes # 0.5 K/mcL (0.0-1.3); Monocytes % 4.9 %; Neutrophils # 7.6 K/mcL (1.6-8.9); Red Blood Count 4.19 M/mcL (3.82-4.97); Red Cell Distribution Width 13.4 % (11.5-14.5); Segmented Neutrophils % 73.2 %; White Blood Count 10.4 K/mcL (4.3-11.1)
[2019-06-28 11:43] LABS: Platelet Count 96 K/mcL (140-400)
[2019-06-28 11:46] LABS: Amphetamine Screen,Urine Negative ng/mL (Cutoff=1000); Barbiturate Screen,Urine Negative ng/mL (Cutoff=200); Benzodiazepines Screen,Urine Negative ng/mL (Cutoff=200); Cannabinoid Screen,Urine Negative ng/mL (Cutoff = 50); Cocaine Screen,Urine Negative ng/mL (Cutoff= 300); Opiate Screen,Urine Negative ng/mL (Cutoff=300); Phencyclidine Screen,Urine Negative ng/mL (Cutoff=25)
[2019-06-28] MEDS ORDERED: Oxytocin 20 units/ LR 1000 mL 20 UNIT/1,000 ML BAG IVC SCH (13:15)
[2019-06-28 17:15] LABS: Alanine Aminotransferase 11 Units/L (7-52); Aspartate Amino Transferase 17 Units/L (13-39); BUN/Creatinine Ratio 15 (6-26); Blood Urea Nitrogen 8 mg/dL (6-20); Lactate Dehydrogenase 276 Units/L (140-271); Uric Acid 3.7 mg/dL (2.3-7.6); eGFR For African Americans > 60 (> 60); eGFR For Non-African Americans > 60 (> 60)
--- NOTE | 2019-06-28 18:09 | OB Labor Progress Note ---
Date of Encounter: 06/28/19 Time of Encounter: 18:07 Labor Progress Note - Subjective Subjective: Patient resting in bed. Patient denies any questions or concerns. - Cervix Cervix: 4/80/-1 - Heart Tones Heart Tones: 125 bpm moderate variability +15x15 accels no decels noted. Cat. 1 tracing - Hendley Hendley: 2-3 min apart - Interventions Interventions: SVE - Plan Physician notified: No Plan: Continue labor management
--- NOTE | 2019-06-28 23:00 | OB/GYN History & Physical ---
Date of Encounter: 06/28/19 Time of Encounter: 10:00 Assessment and Plan (1) Benign gestational thrombocytopenia Current visit: Yes Status: Acute Qualifiers: Trimester: third trimester Qualified Code(s): O99.113 - Other diseases of the blood and blood-forming organs and certain disorders involving the immune mechanism complicating , third trimester; D69.6 - Thrombocytopenia, unspecified (2) 39 weeks gestation of Current visit: No Status: Acute Patient is 39 weeks gestation presents for induction of labor. Upon arrival she reports irregular contractions temporally which fluid. wa s uncomplicated on by gestational thrombocytopenia and her platelets 100 for quite some time. She did have negative antiplatelet antibodies. She was given Medrol Dosepak last week to hopefully help maintain her platelet levels in anticipation for possible epidural. Discussed with patient options patient does desire induction of labor. History of Present Illness Chief complaint: Here for induction of labor, HPI: Ms. Simons is a 24 year old female 2 para 1 female at 39 weeks gestation presents for induction of labor. This is uncomplicated on by gestational thrombocytopenia. Has been hovering around 100 she was given steroid Dosepak last week to help with this. She has had negative antiplatelet antibodies. She denies ecchymosis or easy bleeding. She has no signs or symptoms preeclampsia. On arrival she reports irregular contractions no bleeding or leakage of fluid Past Med Surg Social Fam HX - Past Medical History Source: patient, old records reviewed Medical history: no medical history Psychiatric history: no psych history - Past Surgical History Surgical History: other Additional surgical history: left arm, t&a - Social History Smoking Status: Never smoker Smokeless Tobacco Status: No Alcohol use: none Drug use: none - Family History Mother Family Member Ethnicity: Non- Living Status: Still Living Hx Family Cardiac Disorders: No Hx Family Respiratory Disorders: No Hx Family Cancer: No Hx Family GI Disorders: No Hx Family Genitourinary Disorders: No Hx Family Endocrine Disorder: No Hx Family Musculoskeletal Disorders: No Hx Family Neuromuscular Disorders: No Hx Family Neurologic Disorders: No Hx Family HEENT Disorders: No Hx Family Autoimmune Disorders: No Hx Family Reproductive Disorders: No Hx Family Psychosocial Disorders: No Hx Family Medical Disorders: No Obstetrical History - Pregnancies : 2 Medications and Allergies Caplet 1 tab PO DAILY 06/11/19 [History] Allergy/AdvReac Type Severity Reaction Status Date / Time No Known Allergies Allergy Verified 06/28/19 10:30 Exam - Constitutional Constitutional: well developed, well nourished - HEENT HEENT: EOMI, PERRL - Neck Neck exam: full ROM - Lungs Respiratory exam: CTAB - Cardiovascular Cardiovascular exam: RRR - Abdomen Abdomen: Present: gravid - Extremities Extremities exam: full ROM Deep Tendon Reflex Grade: 2+ Normal - Cervix Dilation: 3 Effacement: 80 Station: -2 Results Result Diagrams: 06/28/19 10:51 06/28/19 10:10 Abnormal lab results Plt Count 96 K/mcL (140-400) L 06/28/19 10:51 Immature Plt Fraction 16.3 % (1.1-6.1) H 06/28/19 10:51 Creatinine 0.54 mg/dL (0.60-1.20) L 06/28/19 10:10 Lactate Dehydrogenase 276 Units/L (140-271) H 06/28/19 10:10 All other labs normal. - VTE Reasons for not Prescribing Prophylaxis: Treatment not Indicated - Low risk for VTE
[2019-06-28] MEDS ORDERED: *HR* FentaNYL (PF) 100 MCG/2 ML VIAL ONE (23:35)
[2019-06-28] MEDS ORDERED: Ropivacaine/PF 0.2% 20 ML VIAL ONE (23:36)
--- NOTE | 2019-06-29 00:07 | OB/GYN Procedure Note ---
Delivery - Delivery Date: 06/29/19 Provider: Miles Elder Intrapartum events: none, delivery of less than 32 weeks Delivery augmentation: rupture of membranes Delivery monitor: external FHT, external uterine Anesthesia: intravenous Quantitated Blood Loss: 100 - Infant (s) Infant A Delivery Date: 06/29/19 Infant Delivery Time: 00:05 Presentation: vertex Position: GARIMA Route of delivery: Gender: Male Viability: Viable Pounds: 7 Ounces: 8 at 1 minute: 8 at 5 mins: 9 Shoulder Dystocia: not encountered Specimens collected: cord blood Placenta: spontaneous Cord: 3 umbilical vessels - Repair Episiotomy: none Laceration Description: None - Complications Delivery complications: none - Disposition Mom disposition: stable in LDR Vincent disposition: stable in LDR - Comments Comments: Patient is status post normal spontaneous vaginal delivery of liveborn male from left occiput anterior presentation. There was no shoulder dystocia and no nuchal cord. Delivery was over intact perineum. Spontaneous delivery of a normal intact placenta with three-vessel cord. Uterus was massaged to firmness Feldman loss 1 mL mother and recovered in labor and delivery room.
[2019-06-29] MEDS ORDERED: Oxytocin 20 units/ LR 1000 mL 20 UNIT/1,000 ML BAG IVC ONE (02:34)
[2019-06-29] MEDS ORDERED: Measles/Mumps/Rubella Vacc 0.5 ML VIAL SQ PRN (02:34)
[2019-06-29] MEDS ORDERED: Rho Immune Globulin 1,500 UNIT SYRINGE IM PRN (02:34)
[2019-06-29] MEDS ORDERED: Oxytocin 20 units/ LR 1000 mL 20 UNIT/1,000 ML BAG IVC SCH (02:34)
[2019-06-29] MEDS ORDERED: Ibuprofen 600 MG TABLET PO PRN (02:34)
[2019-06-29] MEDS ORDERED: Acetaminophen 325 MG TABLET PO PRN (02:34)
[2019-06-29 05:34] LABS: Basophils % 0.1 %; Hematocrit 38.5 % (35.3-44.9); Hemoglobin 13.2 g/dL (11.5-15.4); Immature Granulocytes % 0.6 % (0-4); Lymphocytes # 1.8 K/mcL (0.6-4.6); Lymphocytes % 12.6 %; Mean Corpuscular HGB Conc 34.3 g/dL (31.6-35.5); Mean Corpuscular Hemoglobin 33.1 pg (28.0-33.3); Mean Corpuscular Volume 96.5 fL (83.0-100.0); Mean Platelet Volume 11.3 fL (9.4-12.4); Monocytes # 0.6 K/mcL (0.0-1.3); Monocytes % 4.5 %; Neutrophils # 11.6 K/mcL (1.6-8.9); Platelet Count 115 K/mcL (140-400); Red Blood Count 3.99 M/mcL (3.82-4.97); Red Cell Distribution Width 13.3 % (11.5-14.5); Segmented Neutrophils % 82.2 %; White Blood Count 14.1 K/mcL (4.3-11.1)
[2019-06-29] MEDS: Prenatal Vit/FA 1 EACH TABLET PO SCH (08:29)
--- NOTE | 2019-06-29 21:01 | OB/GYN Progress Note ---
Date of Encounter: 06/29/19 Time of Encounter: 20:59 - Assessment and Plan (1) Status post vaginal delivery Current Visit: Yes Status: Acute Patient meeting day one milestones. Pain well-controlled with prescribed medications. Voiding without difficulty, tolerating regular diet, bleeding light. Positive bowel movement x 3. Anticipate discharge tomorrow (2) Breast feeding status of mother Current Visit: Yes Status: Acute support as needed. Subjective - Subjective Principal diagnosis: Status post vaginal delivery Interval history: Delivery Date: 06/29/19 Provider: Miles Elder Intrapartum events: none, delivery of less than 32 weeks Delivery augmentation: rupture of membranes Delivery monitor: external FHT, external uterine Anesthesia: intravenous Quantitated Blood Loss: 100 - (s) A Delivery Date: 06/29/19 Delivery Time: 00:05 Presentation: vertex Position: GARIMA Route of delivery: Gender: Male Viability: Viable Pounds: 7 Ounces: 8 at 1 minute: 8 at 5 mins: 9 Shoulder Dystocia: not encountered Specimens collected: cord blood Placenta: spontaneous Cord: 3 umbilical vessels - Repair Episiotomy: none Laceration Description: None - Complications Delivery complications: none - Disposition Mom disposition: stable in LDR disposition: stable in LDR - Comments Comments: Patient is status post normal spontaneous vaginal delivery of liveborn male from left occiput anterior presentation. There was no shoulder dystocia and no nuchal cord. Delivery was over intact perineum. Spontaneous delivery of a normal intact placenta with three-vessel cord. Uterus was massaged to firmness Feldman loss 1 mL mother and infant recovered in labor and delivery room. Patient reports: appetite normal, voiding normally, pain well controlled, ambulating normally : doing well, nursing well Objective - Latest Vital Signs Latest vital signs: Vital Signs Temp Pulse Resp BP Pulse Ox 06/29/19 17:35 98.2 F 72 16 99/60 97 06/29/19 08:29 98.6 F 66 15 116/57 99 06/29/19 04:50 98.9 F 60 14 105/62 100 06/29/19 03:40 98.9 F 59 16 110/49 98 06/29/19 02:30 98.6 F 66 14 102/57 99 Intake and Output 06/29/19 06/29/19 06/29/19 07:59 15:59 23:59 Output Total 1000 / 1800 800 / 1800 Balance -1000 / -1800 -800 / -1800 Output: Urine 900 / 1700 800 / 1700 Estimated Blood Loss 100 / 100 Other: Stool Characteristics Normal for Patient Weight 80 kg Patient Weight 06/29/19 23:59 Weight 80 kg - Exam Lungs: bilateral: normal Chest: Normal S1, Normal S2 Extremities: Present: normal Abdomen: Present: normal appearance, soft Uterus: Present: normal, firm Uterus Position: At Umbilicus, Midline - Labs Labs: Laboratory Results - last 24 hr 06/29/19 06/29/19 00:40 05:01 WBC 14.1 H RBC 3.99 Hgb 13.2 Hct 38.5 MCV 96.5 MCH 33.1 MCHC 34.3 RDW 13.3 Plt Count 115 L MPV 11.3 Immature Gran % 0.6 Seg Neutrophils % 82.2 Lymphocytes % 12.6 Monocytes % 4.5 Eosinophils % 0.0 Basophils % 0.1 Neutrophils # 11.6 H Lymphocytes # 1.8 Monocytes # 0.6 Eosinophils # 0.0 Basophils # 0.0 Baby's Blood Type A RH NEGATIVE Mother's Blood Type A RH NEGATIVE Rhogam Indicated NO
[2019-06-30 07:56] VITALS: BP 99/65
[2019-06-30] MEDS: Prenatal Vit/FA 1 EACH TABLET PO SCH (08:20)
--- NOTE | 2019-06-30 08:55 | Discharge Summary ---
Date of Encounter: 06/30/19 Time of Encounter: 08:52 - Discharge Diagnosis (1) Status post vaginal delivery Priority: Primary Status: Acute Comments: Stable, meeting all PP milestones, pain well managed, bleeding minimal, breast feeding, desires discharge - Discharge Medications Prescriptions: New Ibuprofen [Motrin] 600 mg PO Q6HR PRN #60 tablet PRN Reason: Cramping Acetaminophen [Tylenol] 650 mg PO Q6HR PRN tablet PRN Reason: Mild Pain Docusate [Colace] 100 mg PO BID #30 capsule Continued Caplet 1 tab PO DAILY Home Medications: Caplet 1 tab PO DAILY 06/11/19 [History] Acetaminophen [Tylenol] 650 mg PO Q6HR PRN tablet 06/30/19 [Rx] Docusate [Colace] 100 mg PO BID #30 capsule 06/30/19 [Rx] Ibuprofen [Motrin] 600 mg PO Q6HR PRN #60 tablet 06/30/19 [Rx] Allergies/Adverse Reactions: Allergy/AdvReac Type Severity Reaction Status Date / Time No Known Allergies Allergy Verified 06/28/19 10:30 Data Procedures and tests throughout hospitalization: Laboratory Tests 06/28/19 06/28/19 06/28/19 10:10 10:51 10:51 WBC 10.4 RBC 4.19 Hgb 13.8 Hct 40.4 MCV 96.4 MCH 32.9 MCHC 34.2 RDW 13.4 Plt Count 96 L MPV 11.8 Immature Gran % 1.1 Seg Neutrophils % 73.2 Lymphocytes % 20.2 Monocytes % 4.9 Eosinophils % 0.3 Basophils % 0.3 Neutrophils # 7.6 Lymphocytes # 2.1 Monocytes # 0.5 Eosinophils # 0.0 Basophils # 0.0 Immature Plt Fraction 16.3 H BUN 8 Creatinine 0.54 L Est GFR ( Amer) > 60 Est GFR (Non-Af Amer) > 60 BUN/Creatinine Ratio 15 Uric Acid 3.7 AST 17 ALT 11 Lactate Dehydrogenase 276 H Urine Opiates Screen Negative Ur Buprenorphine Scrn Negative Ur Barbiturates Screen Negative Ur Phencyclidine Scrn Negative Ur Amphetamines Screen Negative U Benzodiazepines Scrn Negative Urine Cocaine Screen Negative U Marijuana (THC) Screen Negative Ur Drug Screen Interp See Below Baby's Blood Type Mother's Blood Type Rhogam Indicated 06/29/19 06/29/19 00:40 05:01 WBC 14.1 H RBC 3.99 Hgb 13.2 Hct 38.5 MCV 96.5 MCH 33.1 MCHC 34.3 RDW 13.3 Plt Count 115 L MPV 11.3 Immature Gran % 0.6 Seg Neutrophils % 82.2 Lymphocytes % 12.6 Monocytes % 4.5 Eosinophils % 0.0 Basophils % 0.1 Neutrophils # 11.6 H Lymphocytes # 1.8 Monocytes # 0.6 Eosinophils # 0.0 Basophils # 0.0 Immature Plt Fraction BUN Creatinine Est GFR ( Amer) Est GFR (Non-Af Amer) BUN/Creatinine Ratio Uric Acid AST ALT Lactate Dehydrogenase Urine Opiates Screen Ur Buprenorphine Scrn Ur Barbiturates Screen Ur Phencyclidine Scrn Ur Amphetamines Screen U Benzodiazepines Scrn Urine Cocaine Screen U Marijuana (THC) Screen Ur Drug Screen Interp Baby's Blood Type A RH NEGATIVE Mother's Blood Type A RH NEGATIVE Rhogam Indicated NO Date of admission: 06/28/19 10:10 Primary care physician: PCP NONE Consults: 06/29/19 02:34 Consult to [facility] [CONS] Routine Comment: Vaginal delivery, consult needed Discharging clinician: Holli Woodward Anticipated date of discharge: 06/30/19 - Patient Status Disposition: Home, Self-Care Condition: Good Functional capacity at discharge: independent ambulation Overall status at discharge: patient is progressing back to baseline - Discharge Instructions Follow Up With: NONE,PCP [Primary Care Provider] - - Diet and Activity Diet: regular diet Hospital Course Reason for admission: IUP at term Delivery: Episiotomy: none Laceration: none Other procedures: none complications: none Discharge diagnosis: IUP at term delivered [place] baby: male Hospital course: [facility] - Delivery Date: 06/29/19 Provider: Miles Elder Intrapartum events: none, delivery of infant less than 32 weeks Delivery augmentation: rupture of membranes Delivery monitor: external FHT, external uterine Anesthesia: intravenous Quantitated Blood Loss: 100 - (s) A Infant Delivery Date: 06/29/19 Infant Delivery Time: 00:05 Presentation: vertex Position: GARIMA Route of delivery: Gender: Male Viability: Viable Pounds: 7 Ounces: 8 at 1 minute: 8 at 5 mins: 9 Shoulder Dystocia: not encountered Specimens collected: cord blood Placenta: spontaneous Cord: 3 umbilical vessels - Repair Episiotomy: none Laceration Description: None - Complications Delivery complications: none - Disposition Mom disposition: stable in PP and appropriate for discharge Time Attestation: Total time spent providing and/or coordinating discharge services: Time Spent: Less than 30 minutes Exam - Constitutional Vitals: Temp Pulse Resp BP Pulse Ox 98.4 F 59 16 99/65 99 06/30/19 07:55 06/30/19 07:55 06/30/19 07:55 06/30/19 07:55 06/30/19 07:55 General appearance IM: A&O X 3 - Respiratory Respiratory exam: Present: CTAB - Cardiovascular Cardiovascular exam IM: Present: RRR - GI/Abdominal GI/Abdominal exam IM: soft - Uterine Tone: Firm Uterus Position: At Umbilicus - Extremities Exam Extremities exam IM: Present: normal capillary refill, normal inspection - Neurological Exam Neurological exam: normal gait, oriented X3 - Psychiatric Additional comments: reports good mood
== END 2019-06-30 12:12 | disposition home or self-care (01) | DRG 560 ==
LOC: 1NENULAB 10:10 → 1NENUOBS 06-29 02:54
PROVIDERS: ADMIT Obstetrics & Gynecology; ATTEND Obstetrics & Gynecology

== ENCOUNTER 2020-09-17 13:42 | Observation (INO) | END 2020-09-17 15:41 | disposition home or self-care (01) | LOC: 1NENULAB | PROVIDERS: ADMIT Obstetrics & Gynecology; ATTEND Obstetrics & Gynecology ==

== ENCOUNTER 2020-09-21 01:56 | Observation (INO) | END 2020-09-21 03:47 | disposition home or self-care (01) | LOC: 1NENULAB | PROVIDERS: ADMIT Student in an Organized Health Care Education/Training Program; ATTEND Student in an Organized Health Care Education/Training Program ==

== ENCOUNTER 2020-10-07 08:00 | Inpatient (IN) ==
[2020-10-07] MEDS ORDERED: Metoclopramide 10 MG/2 ML VIAL IVP PRN (08:16)
[2020-10-07] MEDS ORDERED: *HR* FentaNYL (PF) 100 MCG/2 ML VIAL IVP PRN (08:16)
[2020-10-07] MEDS ORDERED: Famotidine 20 MG/2 ML VIAL IVP PRN (08:16)
[2020-10-07] MEDS ORDERED: Naloxone 0.4 MG/ML INJ IVP PRN (08:16)
[2020-10-07] MEDS ORDERED: Ondansetron 4 MG/2 ML VIAL IVP PRN (08:16)
[2020-10-07] MEDS ORDERED: Ringers Solution, Lactated 1,000 ML IVC SCH (08:30)
[2020-10-07] MEDS ORDERED: miSOPROStoL 100 MCG TABLET PO STA (09:00)
[2020-10-07 09:05] LABS: Basophils % 0.2 %; Hemoglobin 12.4 g/dL (11.5-15.4)
[2020-10-07 09:10] LABS: Eosinophils % 0.3 %; Hematocrit 35.7 % (35.3-44.9); Immature Granulocytes % 1.3 % (0-4); Lymphocytes # 2.1 K/mcL (0.6-4.6); Lymphocytes % 19.9 %; Mean Corpuscular HGB Conc 34.7 g/dL (31.6-35.5); Mean Corpuscular Hemoglobin 32.2 pg (28.0-33.3); Mean Corpuscular Volume 92.7 fL (83.0-100.0); Mean Platelet Volume 11.5 fL (9.4-12.4); Monocytes # 0.5 K/mcL (0.0-1.3); Monocytes % 4.9 %; Neutrophils # 7.6 K/mcL (1.6-8.9); Red Blood Count 3.85 M/mcL (3.82-4.97); Segmented Neutrophils % 73.4 %; White Blood Count 10.3 K/mcL (4.3-11.1)
[2020-10-07] MEDS ORDERED: miSOPROStoL 25 MCG TABLET PO STA (09:21)
[2020-10-07 09:44] LABS: Mean Platelet Volume 10.2 fL (9.4-12.4)
[2020-10-07 09:49] LABS: Amphetamine Screen,Urine Negative ng/mL (Cutoff=1000); Barbiturate Screen,Urine Negative ng/mL (Cutoff=200); Benzodiazepines Screen,Urine Negative ng/mL (Cutoff=200); Cannabinoid Screen,Urine Negative ng/mL (Cutoff = 50); Cocaine Screen,Urine Negative ng/mL (Cutoff= 300); Opiate Screen,Urine Negative ng/mL (Cutoff=300); Phencyclidine Screen,Urine Negative ng/mL (Cutoff=25)
[2020-10-07] MEDS ORDERED: EPHEDrine 50 MG/ML VIAL IVP PRN (10:48)
[2020-10-07] MEDS ORDERED: Epidural Premix (fent/bupiv) 110 ML EP SCH (11:00)
[2020-10-07] MEDS ORDERED: Oxytocin 20 units/ LR 1000 mL 20 UNIT/1,000 ML BAG IVC SCH ×2 (13:15→19:55)
[2020-10-07] MEDS ORDERED: Lidocaine 1% 20 ML MDV ONE (18:02)
[2020-10-07] MEDS ORDERED: Methylergonovine 0.2 MG/ML AMPUL IM ONE (18:34)
[2020-10-07] MEDS ORDERED: Acetaminophen 325 MG TABLET PO PRN (19:55)
[2020-10-07] MEDS ORDERED: Oxytocin 20 units/ LR 1000 mL 20 UNIT/1,000 ML BAG IVC ONE (19:55)
[2020-10-07] MEDS ORDERED: Rho Immune Globulin 1,500 UNIT SYRINGE IM PRN (19:55)
[2020-10-07] MEDS: Ibuprofen 600 MG TABLET PO PRN (20:06)
[2020-10-08 05:22] LABS: Eosinophils % 0.1 %
[2020-10-08 05:24] LABS: Basophils % 0.2 %; Hemoglobin 11.8 g/dL (11.5-15.4); Immature Granulocytes % 1.1 % (0-4); Immature Platelets 7.3 % (1.1-6.1); Lymphocytes % 13.2 %; Mean Corpuscular HGB Conc 33.7 g/dL (31.6-35.5); Mean Corpuscular Hemoglobin 32.2 pg (28.0-33.3); Mean Corpuscular Volume 95.6 fL (83.0-100.0); Mean Platelet Volume 11.7 fL (9.4-12.4); Monocytes # 0.9 K/mcL (0.0-1.3); Monocytes % 6.4 %; Platelet Count 140 K/mcL (140-400); Red Blood Count 3.66 M/mcL (3.82-4.97); Red Cell Distribution Width 13.9 % (11.5-14.5)
[2020-10-08 05:26] LABS: Lymphocytes # 1.9 K/mcL (0.6-4.6); Neutrophils # 11.1 K/mcL (1.6-8.9)
[2020-10-08] MEDS ORDERED: METHYLPREDNISOLONE PO SCH (09:00)
[2020-10-08] MEDS ORDERED: Prenatal Vit/FA 1 EACH TABLET PO SCH (09:00)
[2020-10-08] MEDS: Ibuprofen 600 MG TABLET PO PRN (09:28)
[2020-10-08 15:37] VITALS: BP 110/64
[2020-10-08] MEDS ORDERED: Lidocaine/EPI 1:100k 1% 30 ML VIAL INFILT ONE (15:53)
[2020-10-08] MEDS ORDERED: Etonogestrel 68 MG IMPLANT IL ONE (15:53)
== END 2020-10-08 18:35 | disposition home or self-care (01) | DRG 560 ==
LOC: 1NENULAB 08:08 → 1NENUOBS 21:19
PROVIDERS: ADMIT Obstetrics & Gynecology; ATTEND Obstetrics & Gynecology